=== PATIENT | female | born 1970 | race Caucasian/White ===

== ENCOUNTER 2019-04-14 22:25 | Emergency (ER) | payer OTHER ==
[~2019-04-14] VITALS: Ht 165.1 cm; Wt 72.7 kg
[2019-04-14 22:30] VITALS: BP 145/69; TEMP 98.5
[2019-04-14 23:50] LABS: COLLECTION METHOD CLEAN CATCH
[2019-04-15 00:01] LABS: PH 6 (5-8); URINE APPEARANCE Cloudy; URINE BACTERIA None Seen /hpf; URINE BILIRUBIN Negative (NEGATIVE); URINE BLOOD 3+ (NEGATIVE); URINE COLOR Red; URINE GLUCOSE Negative (NEGATIVE); URINE KETONE Negative (NEGATIVE); URINE LEUKOCYTE ESTERASE 2+ (NEGATIVE); URINE NITRATE Positive (NEGATIVE); URINE PROTEIN(semi-quant) 2+ (NEGATIVE); URINE RBC >50 /hpf; URINE UROBILINOGEN Negative (NEGATIVE)
[2019-04-15] MEDS ORDERED: CLARITIN 1010 MG/TAB PO (00:32)
[2019-04-15] MEDS ORDERED: OMNICEF 300MG300 MG PO ×3 (00:37→00:38)
[2019-04-15 00:49] VITALS: PULSE 94
== END 2019-04-15 00:54 | disposition home or self-care (01) ==
LOC: COL.ER 22:25
PROVIDERS: Emergency Medicine
DX: N30.90 Cystitis, unspecified without hematuria (principal); Z90.710 Acquired absence of both cervix and uterus
CPT/HCPCS: J0696